=== PATIENT | female | born 1980 | race Caucasian/White ===

== ENCOUNTER 2018-04-10 20:21 | Inpatient (IN) | payer BC, OTHER ==
[~2018-04-10] VITALS: Ht 157.5 cm; Wt 68.9 kg
[2018-04-10 22:12] LABS: BASOPHILS % 0.5 % (0.0-2.0); EOSINOPHILS % 3.6 % (0.0-5.0); HEMATOCRIT. 40.9 % (36.0-48.0); HEMOGLOBIN. 14.2 g/dL (12.0-16.0); LYMPHOCYTES % 39.2 % (20.0-50.0); MEAN CORPUSCULAR HEMOGLOBIN 32.9 pg (28.0-32.0); MEAN CORPUSCULAR VOLUME 94.4 fL (81.0-99.0); MEAN PLATELET VOLUME 10.7 fl (7.4-10.4); MONOCYTES % 6.9 % (2.0-8.0); NEUTROPHILS % 49.8 % (40.0-76.0); PLATELET 213 x1000/uL (130-400); RED BLOOD CELL COUNT 4.33 mill/uL (4.2-5.4); RED CELL DISTRIBUTION WIDTH 13.1 % (11.6-14.6)
[2018-04-10 22:16] LABS: CHLORIDE 104 mEq/L (98-107)
[2018-04-11 00:13] LABS: CLARITY URINE CLOUDY (CLEAR); COLOR URINE YELLOW (YELLOW); KETONES URINE NEGATIVE (NEGATIVE); LEUKOCYTE ESTERASE URINE NEGATIVE (NEGATIVE); NITRITE URINE NEGATIVE (NEGATIVE); OCCULT BLOOD URINE NEGATIVE (NEGATIVE); PH URINE 6.5 (4.5-8.0); PROTEIN URINE NEGATIVE (NEGATIVE); SPECIFIC GRAVITY URINE 1.018 (1.005-1.030); UROBILINOGEN URINE 0.2 E.U./dL (0.2-1.0)
[2018-04-11] MEDS ORDERED: LORAZEPAM 1MG TABLET PO ONE (00:15)
[2018-04-11] MEDS ORDERED: ONDANSETRON HCL 4MG/2ML INJ IV PRN (07:00)
[2018-04-11] MEDS ORDERED: ACETAMINOPHEN 325MG TABLET PO PRN (07:00)
[2018-04-11] MEDS ORDERED: MAGNESIUM/ALUMINUM HYDROXIDE/SIMETHICONE 30ML UDC PO PRN (07:00)
[2018-04-11] MEDS ORDERED: LORAZEPAM 1MG TABLET PO PRN (07:00)
[2018-04-11] MEDS ORDERED: CLONIDINE 0.1MG TABLET PO PRN (07:00)
[2018-04-11 09:45] VITALS: BP 105/58
[2018-04-11] MEDS ORDERED: POTASSIUM CHLORIDE 20MEQ TABLET SR PO SCH (11:30)
[2018-04-11 12:00] VITALS: BP 96/64
[2018-04-11] MEDS ORDERED: SODIUM CHLORIDE 0.9% INJ 3ML FLUSH IVF SCH (14:00)
[2018-04-11 16:00] VITALS: BP 111/66
[2018-04-11 16:33] LABS: UCG SCREEN NEGATIVE
[2018-04-11 17:41] VITALS: BP 111/66
== END 2018-04-11 18:00 | disposition home or self-care (01) | DRG 313 ==
LOC: ER 20:21 → 5EST 23:07 → EDBEDREQTM 23:08 → EDBEDREQ 23:08 → ENRESERV 04-11 08:14
PROVIDERS: ADMIT Internal Medicine; ATTEND Internal Medicine
DX: R07.89 Other chest pain (principal); E87.6 Hypokalemia; F40.240 Claustrophobia; G43.909 Migraine, unspecified, not intractable, without status migrainosus; Z82.49 Family history of ischemic heart disease and other diseases of the circulatory system; Z83.3 Family history of diabetes mellitus; Z90.49 Acquired absence of other specified parts of digestive tract; Z88.5 Allergy status to narcotic agent
CPT/HCPCS: 36415; 71045; 81025; 83735; 83880; 84484; 85379; 93005; 93306; 93970; 99285